=== PATIENT | female | born 1950 | race Caucasian/White ===

== ENCOUNTER 2023-04-09 05:36 | Observation (INO) ==
[~2023-04-09 05:36] MED LIST: Naloxone 0.4 mg VIAL 0.4 mg/ml 1 ml VIAL IV PRN; fentaNYL 100 mcg/2 ml 50 MCG/ML VIAL IV PRN
[2023-04-09] MEDS ORDERED: Chlorhexidine MOUTHWASH 0.12% 15 ML UDC ONE (05:44)
[2023-04-09] MEDS ORDERED: Lactated Ringers 1000 ml BAG 1,000 ML IV SCH ×2 (06:00→10:00)
[2023-04-09] MEDS ORDERED: Famotidine IV 10 MG/ML 2 ml VIAL (20 mg) IV ONE (06:00)
[2023-04-09] MEDS ORDERED: Buffered Lidocaine 1% SYRIN 1 ml INTRADERM ONE (06:00)
[2023-04-09 06:28] LABS: Rapid COVID-19 Molecular Undetected (Undetected)
[2023-04-09] MEDS ORDERED: ceFAZolin 2 GM PREMIX 2 GM/50 ML BAG ONE (06:37)
[2023-04-09] MEDS ORDERED: Famotidine IV 10 MG/ML 2 ml VIAL (20 mg) ONE (06:38)
[2023-04-09] MEDS ORDERED: Propofol 10 MG/ML 20 ML BTL ONE (06:58)
[2023-04-09] MEDS ORDERED: Lidocaine 2% PF 5 ML VIAL ONE (06:58)
[2023-04-09] MEDS ORDERED: fentaNYL 250 mcg/5 ml 50 MCG/ML 5 ml VIAL (250 MCG) ONE (06:58)
[2023-04-09] MEDS ORDERED: Rocuronium 50 mg VIAL 10 mg/ml 5 ml VIAL (50 mg) ONE ×2 (06:58→08:00)
[2023-04-09] MEDS ORDERED: Midazolam 2 mg/2 ml VIAL 1 mg/ml 2 ml VIAL (2 mg) ONE (06:58)
[2023-04-09] MEDS ORDERED: Labetalol IV 5 MG/ML 20 ml VIAL IV PUSH ONE (07:04)
[2023-04-09] MEDS ORDERED: fentaNYL 100 mcg/2 ml 50 MCG/ML VIAL IV ONE (07:05)
[2023-04-09] MEDS ORDERED: fentaNYL 100 mcg/2 ml 50 MCG/ML VIAL ONE (07:06)
[2023-04-09] MEDS ORDERED: Labetalol IV 5 MG/ML 20 ml VIAL ONE (07:06)
[2023-04-09] MEDS ORDERED: Lidocaine 1% w EPI 1:200,000 SDV 30 ML VIAL ONE (07:10)
[2023-04-09] MEDS ORDERED: ceFAZolin VIAL VIAL ONE (07:10)
[2023-04-09] MEDS ORDERED: Thrombin 5,000 UNITS 1 APPLIC KIT - topical use - TOPICAL ONE (07:10)
[2023-04-09] MEDS ORDERED: Gelfoam Sponge SIZE 100 SPONGE ONE (07:10)
[2023-04-09] MEDS ORDERED: hydrALAZINE 20 mg/ml 1 ML Vial IV ONE (07:27)
[2023-04-09] MEDS ORDERED: Dexamethasone IV 4 MG/ML VIAL 1 ml VIAL ONE (07:59)
[2023-04-09] MEDS ORDERED: Ondansetron 4 mg VIAL 2 MG/ML 2 ml VIAL ONE (07:59)
[2023-04-09] MEDS ORDERED: HYDROmorphone 0.5 MG/0.5 ML SYRINGE ONE (09:28)
[2023-04-09] MEDS ORDERED: Ondansetron 4 mg VIAL 2 MG/ML 2 ml VIAL IV PRN (09:56)
[2023-04-09] MEDS ORDERED: Morphine 2 MG/ML SYRINGE IV PRN (09:56)
[2023-04-09] MEDS ORDERED: Calcium Carb (TUMS) 500 mg CHEW TAB PO PRN (09:56)
[2023-04-09] MEDS ORDERED: Senna TAB 8.6 mg TAB PO PRN (09:56)
[2023-04-09] MEDS ORDERED: Naloxone 0.4 mg VIAL 0.4 mg/ml 1 ml VIAL IV PRN (10:10)
[2023-04-10 14:24] VITALS: BP 116/75
== END 2023-04-10 18:55 | disposition home or self-care (01) ==
LOC: SSU 05:36 → OR 05:36
PROVIDERS: ADMIT Neurological Surgery; ATTEND Neurological Surgery